=== PATIENT | female | born 1955 | race Caucasian/White ===

== ENCOUNTER 2016-08-14 09:38 | Emergency (ER) | payer BC ==
[2016-08-14 13:29] LABS: Hematocrit 42 % (35-47); Hemoglobin 14.2 g/dl (12.0-16.0); Mean Corpuscular HGB Conc 34 g/dl (31-36); Mean Corpuscular Hemoglobin 32 pg (27-31); Mean Corpuscular Volume 95 fL (80-97); Mean Platelet Volume 8 um3 (7.4-10.4); Red Blood Count 4.41 10^6/ul (4.0-5.4); Red Cell Distribution Width 13 % (10.5-15); White Blood Count 8.8 10^3/ul (3.5-10.8)
[2016-08-14 13:45] LABS: Albumin 3.9 g/dL (3.2-5.2); BUN/Creatinine Ratio 25.6 (8-20); C Reactive Protein 32.91 mg/L (< 5.00); Calcium 9.2 mg/dL (8.6-10.3); EGFR African American 97.2 (>60); EGFR Non-African American 75.6 (>60); Globulin 3.6 g/dL (2-4); Potassium 3.7 mmol/L (3.5-5.0); Total Bilirubin 0.3 mg/dL (0.2-1.0); Total Protein 7.5 g/dL (6.4-8.9); Urine Bacteria 1+ (Absent); Urine Bilirubin Negative (Negative); Urine Glucose Negative (Negative); Urine Nitrite Positive (Negative)
--- NOTE | 2016-08-14 13:55 | RAD ---
HISTORY: Right upper quadrant pain COMPARISONS: None TECHNIQUE: Multiple transverse and longitudinal ultrasound images were obtained of the right upper quadrant of the abdomen using grayscale and color Doppler imaging. FINDINGS: LIVER: The liver is normal in shape, size, contour, and echogenicity. There are no focal parenchymal masses. There is normal hepatopedal flow of the portal vein on Doppler imaging. BILIARY TREE: There is no intrahepatic or extrahepatic biliary dilatation. The common duct measures 0.3 cm. GALLBLADDER: The gallbladder is well-visualized. There is no cholelithiasis, gallbladder wall thickening, pericholecystic fluid, or sonographic Crespo sign. PANCREAS: The head of the pancreas is unremarkable. The tail of the pancreas is not well visualized secondary to overlying bowel gas. RIGHT KIDNEY: The right kidney is normal in shape, size, contour, and echogenicity. There is no hydronephrosis or nephrolithiasis. The right kidney measures 9.3 x 3.6 x 3.9 cm. AORTA AND IVC: The aorta and IVC are unremarkable. FLUID: There are no pleural effusions. There is no free fluid within the hepatorenal recess. OTHER FINDINGS: None. IMPRESSION: NO ACUTE SONOGRAPHIC PATHOLOGY OF THE VISUALIZED PORTION OF THE ABDOMEN
[2016-08-14] MEDS ORDERED: HYDROmorphone* 1 MG/ML 1 ML SYR IV ONE (14:04)
[2016-08-14] MEDS ORDERED: Ondansetron INJ* 2 MG/ML VIAL IV ONE (14:04)
--- NOTE | 2016-08-14 14:45 | RAD ---
INDICATION: 1 week lower abdominal pain radiating to the lower back. Pain persists for 2 hours then resolves. COMPARISON: None. TECHNIQUE: Multidetector CT images were obtained from the lung bases to the ischial tuberosities. Evaluation of the viscera is limited without IV contrast. Multiplanar reformation. REPORT: 3 mm nodule at the lateral basal segment of the LEFT lower lobe seen in association with a bronchovascular bundle reference image 16.. Additional 3 mm subpleural nodule at the lateral basal segment of the LEFT lower lobe reference image 11. Unremarkable unenhanced liver, gallbladder, pancreas, spleen. Negative for CT abnormality of the upper GI or small bowel. The appendix is not visualized. Negative for inflammatory change in the region of the cecum or remainder of the RIGHT lower quadrant. Unremarkable colon. Negative for perienteric inflammatory change, ascites, free air, or significant hernias. Normal adrenal glands. 2.4 cm diameter exophytic cortical cyst of the LEFT kidney. Unremarkable nondilated ureters and partially distended urinary bladder. Post hysterectomy. Unremarkable adnexal regions. Negative for lymphadenopathy. Normal diameter abdominal aorta and common iliac arteries with atherosclerotic calcification. Physiologic distention of the IVC. Bilateral chronic appearing L5 spondylolysis with grade 2 anterolisthesis. No suspicious focal osseous lesions evident. IMPRESSION: 1. While the appendix is not visualized limiting assessment there is no inflammatory change in the region of the cecum or remainder of the RIGHT lower quadrant to raise concern for appendicitis. 2. Negative for urolithiasis or obstructive uropathy. 3. No acute abdominal pelvic pathologic process evident. 4. Incidental LEFT basilar pulmonary nodules measuring 3 mm or smaller for which follow-up noncontrast CT in 12 months time is suggested if there are known risk factors for bronchogenic carcinoma. Ref: Aleta H, Serge FLOWERS, Jesus G, et al. Guidelines for Management of Small Pulmonary Nodules Detected on CT Scans: A Statement from the Fleischner Society. March 2005 Radiology, 237, [phone].
[2016-08-14] MEDS ORDERED: Ciprofloxacin TAB* 500 MG PO ONE (15:23)
[2016-08-14 15:42] VITALS: BP 110/56
--- NOTE | 2016-08-15 14:06 | ED ---
Kev Benson Adam, scribed for Rajeev Oakley MD on 08/14/16 at 1252 . Abdominal Pain/Female - HPI Summary HPI Summary: Pt is a 60 year old female presenting with lower abdominal pain. She states that the pain has been intermittent for the past 1.5 weeks. It feels like her abdomen is "on fire" and it radiates to both sides and to the back. She states that it hurts when she eats and it also hurts when she doesn't eat. She denies nausea and vomiting. Surgical hx of partial hysterectomy x2. - History of Current Complaint Chief Complaint: EDAbdPain Stated Complaint: ABD/BACK PAIN Time Seen by Provider: 08/14/16 12:29 Hx Obtained From: Patient Onset/Duration: Gradual Onset, Lasting Weeks, Still Present Timing: Intermittent Episode Lasting - Hours Severity Initially: Moderate Severity Currently: Moderate Pain Intensity: 3 Pain Scale Used: 0-10 Numeric Location: Diffuse, Discrete At: RLQ, Discrete At: LLQ, Suprapubic Radiates: Yes Radiates to: Back, Other - Both sides Character: Burning - "On fire" Aggravating Factor(s): Food Alleviating Factor(s): Nothing Associated Signs and Symptoms: Positive: Negative. Negative: Nausea, Vomiting Allergies/Adverse Reactions: Allergies Allergy/AdvReac Type Severity Reaction Status Date / Time No Known Allergies Allergy Verified 08/14/16 09:55 PMH/Surg Hx/FS Hx/Imm Hx Previously Healthy: Yes - Cancer History Cancer Type, Location and Year: Negative - Surgical History Surgery Procedure, Year, and Place: Negative Infectious Disease History: No Infectious Disease History: Denies: Traveled Outside the [place] in Last 30 Days - Family History Known Family History: Positive: Cardiac Disease, Diabetes, Other - Gallbladder disease, cancer - Social History Occupation: Employed Full-time Lives: With Family - Alcohol Use: None Hx Substance Use: No Substance Use Type: Reports: None Hx Tobacco Use: Yes Smoking Status (MU): Current Every Day Smoker Review of Systems Negative: Fever Positive: Abdominal Pain. Negative: Vomiting, Nausea All Other Systems Reviewed And Are Negative: Yes Physical Exam Triage Information Reviewed: Yes Vital Signs On Initial Exam: Initial Vitals Temp Pulse Resp BP Pulse Ox 97.3 F 78 16 131/71 99 08/14/16 09:45 08/14/16 09:45 08/14/16 09:45 08/14/16 09:45 08/14/16 09:45 Vital Signs Reviewed: Yes Appearance: Positive: Well-Appearing, No Pain Distress Skin: Positive: Warm, Skin Color Reflects Adequate Perfusion, Dry Head/Face: Positive: Normal Head/Face Inspection Eyes: Positive: Normal ENT: Positive: Normal ENT inspection Neck: Positive: Supple, Nontender Respiratory/Lung Sounds: Positive: Clear to Auscultation, Breath Sounds Present Cardiovascular: Positive: RRR Abdomen Description: Positive: Other: - Positive Crespo's sign. Tenderness in the RUQ, RLQ, and epigastrium. Bowel Sounds: Positive: Present Musculoskeletal: Positive: Normal Neurological: Positive: Normal Psychiatric: Positive: Affect/Mood Appropriate - [place] Coma Scale Coma Scale Total: 15 Diagnostics - Vital Signs Vital Signs Temp Pulse Resp BP Pulse Ox 08/14/16 12:24 72 16 125/71 99 08/14/16 10:36 98.1 F 77 16 132/52 100 08/14/16 09:45 97.3 F 78 16 131/71 99 - Laboratory Lab Results: Lab Results 08/14/16 08/14/16 08/14/16 Range/Units 13:15 13:15 13:15 WBC 8.8 (3.5-10.8) 10^3/ul RBC 4.41 (4.0-5.4) 10^6/ul Hgb 14.2 (12.0-16.0) g/dl Hct 42 (35-47) % MCV 95 (80-97) fL MCH 32 H (27-31) pg MCHC 34 (31-36) g/dl RDW 13 (10.5-15) % Plt Count 360 (150-450) 10^3/ul MPV 8 (7.4-10.4) um3 Neut % (Auto) 68.4 (38-83) % Lymph % (Auto) 24.3 L (25-47) % [place] % (Auto) 4.3 (1-9) % Eos % (Auto) 1.4 (0-6) % Baso % (Auto) 1.6 (0-2) % Absolute Neuts (auto) 6.0 (1.5-7.7) 10^3/ul Absolute Lymphs (auto) 2.1 (1.0-4.8) 10^3/ul Absolute Monos (auto) 0.4 (0-0.8) 10^3/ul Absolute Eos (auto) 0.1 (0-0.6) 10^3/ul Absolute Basos (auto) 0.1 (0-0.2) 10^3/ul Absolute Nucleated RBC 0 10^3/ul Nucleated RBC % 0 Sodium 136 (133-145) mmol/L Potassium 3.7 (3.5-5.0) mmol/L Chloride 102 (101-111) mmol/L Carbon Dioxide 26 (22-32) mmol/L Anion Gap 8 (2-11) mmol/L BUN 20 (6-24) mg/dL Creatinine 0.78 (0.51-0.95) mg/dL Est GFR ( Amer) 97.2 (>60) Est GFR (Non-Af Amer) 75.6 (>60) BUN/Creatinine Ratio 25.6 H (8-20) Glucose 89 (70-100) mg/dL Lactic Acid (0.5-2.0) mmol/L Calcium 9.2 (8.6-10.3) mg/dL Total Bilirubin 0.30 (0.2-1.0) mg/dL AST 12 L (13-39) U/L ALT 7 (7-52) U/L Alkaline Phosphatase 109 H (34-104) U/L C-Reactive Protein 32.91 H (< 5.00) mg/L Total Protein 7.5 (6.4-8.9) g/dL Albumin 3.9 (3.2-5.2) g/dL Globulin 3.6 (2-4) g/dL Albumin/Globulin Ratio 1.1 (1-3) Lipase 13 (11.0-82.0) U/L Urine Color [place]isha Urine Appearance Cloudy Urine pH 5.0 (5-9) Ur Specific [place] 1.024 (1.010-1.030) Urine Protein Negative (Negative) Urine Ketones Trace H (Negative) Urine Blood 2+ H (Negative) Urine Nitrate Positive H (Negative) Urine Bilirubin Negative (Negative) Urine Urobilinogen Negative (Negative) Ur Leukocyte Esterase Trace H (Negative) Urine WBC (Auto) Trace(0-5/hpf) (Absent) Urine RBC (Auto) Trace(0-2/hpf) (Absent) Ur Squamous Epith Cells Present H (Absent) Urine Bacteria 1+ H (Absent) Urine Glucose Negative (Negative) 08/14/16 Range/Units 13:15 WBC (3.5-10.8) 10^3/ul RBC (4.0-5.4) 10^6/ul Hgb (12.0-16.0) g/dl Hct (35-47) % MCV (80-97) fL MCH (27-31) pg MCHC (31-36) g/dl RDW (10.5-15) % Plt Count (150-450) 10^3/ul MPV (7.4-10.4) um3 Neut % (Auto) (38-83) % Lymph % (Auto) (25-47) % [place] % (Auto) (1-9) % Eos % (Auto) (0-6) % Baso % (Auto) (0-2) % Absolute Neuts (auto) (1.5-7.7) 10^3/ul Absolute Lymphs (auto) (1.0-4.8) 10^3/ul Absolute Monos (auto) (0-0.8) 10^3/ul Absolute Eos (auto) (0-0.6) 10^3/ul Absolute Basos (auto) (0-0.2) 10^3/ul Absolute Nucleated RBC 10^3/ul Nucleated RBC % Sodium (133-145) mmol/L Potassium (3.5-5.0) mmol/L Chloride (101-111) mmol/L Carbon Dioxide (22-32) mmol/L Anion Gap (2-11) mmol/L BUN (6-24) mg/dL Creatinine (0.51-0.95) mg/dL Est GFR ( Amer) (>60) Est GFR (Non-Af Amer) (>60) BUN/Creatinine Ratio (8-20) Glucose (70-100) mg/dL Lactic Acid 0.6 (0.5-2.0) mmol/L Calcium (8.6-10.3) mg/dL Total Bilirubin (0.2-1.0) mg/dL AST (13-39) U/L ALT (7-52) U/L Alkaline Phosphatase (34-104) U/L C-Reactive Protein (< 5.00) mg/L Total Protein (6.4-8.9) g/dL Albumin (3.2-5.2) g/dL Globulin (2-4) g/dL Albumin/Globulin Ratio (1-3) Lipase (11.0-82.0) U/L Urine Color Urine Appearance Urine pH (5-9) Ur Specific [place] (1.010-1.030) Urine Protein (Negative) Urine Ketones (Negative) Urine Blood (Negative) Urine Nitrate (Negative) Urine Bilirubin (Negative) Urine Urobilinogen (Negative) Ur Leukocyte Esterase (Negative) Urine WBC (Auto) (Absent) Urine RBC (Auto) (Absent) Ur Squamous Epith Cells (Absent) Urine Bacteria (Absent) Urine Glucose (Negative) Result Diagrams: 08/14/16 13:15 08/14/16 13:15 Lab Statement: Any lab studies that have been ordered have been reviewed, and results considered in the medical decision making process. - CT ABDOMEN/PELVIS CT Interpretation Completed By: Radiologist - IMPRESSION: 1. While the appendix is not visualized limiting assessment there is no inflammatory change in the region of the cecum or remainder of the RIGHT lower quadrant to raise concern for appendicitis. 2. Negative for urolithiasis or obstructive uropathy. 3. No acute abdominal pelvic pathologic process evident. 4. Incidental LEFT basilar pulmonary nodules measuring 3 mm or smaller for which follow-up noncontrast CT in 12 months time is suggested if there are known risk factors for bronchogenic carcinoma. Ref: Aleta H, Serge JH, Jesus G, et al. Guidelines for Management of Small Pulmonary Nodules Detected on CT Scans: A Statement from the Fleischner Society. March 2005 Radiology, 237, [phone]. - Additional Comments Diagnostic Additional Comments: GALLBLADDER ULTRASOUND - IMPRESSION: NO ACUTE SONOGRAPHIC PATHOLOGY OF THE VISUALIZED PORTION OF THE ABDOMEN Abdominal Pain Fem Course/Dx - Course Course Of Treatment: Ms. Jerez presented with diffuse pain and seemed more tender in the RUQ and right flank. U/S was negative for GB problems and her CT was unremarkable as were her labs aside from a UTI. She felt improved at D/C and I will treat the urine. - Diagnoses Provider Diagnoses: Pyelonephritis Discharge - Discharge Plan Condition: Stable Disposition: HOME Prescriptions: Ciprofloxacin TAB* [Cipro Tab*] 500 mg PO BID #14 tab Patient Education Materials: Acute Pyelonephritis (ED) Referrals: [facility] PHYSICIAN REFERRAL [Outside] Additional Instructions: Follow up with your Primary Care Physician. Use [facility] Physician Referral Center if needed. The documentation as recorded by the Kev barragan Adam accurately reflects the service I personally performed and the decisions made by me, Rajeev Oakley MD.
--- NOTE | 2016-08-16 07:30 | PN ---
Progress Note - Progress Note Note: Patient urine grew E coli >100,000. Patient placed on cipro will wait for final culture.
== END 2016-08-14 15:51 | disposition home or self-care (01) ==
LOC: ED 09:38
DX: N12 Tubulo-interstitial nephritis, not specified as acute or chronic (principal); R10.31 Right lower quadrant pain; R10.32 Left lower quadrant pain; F17.210 Nicotine dependence, cigarettes, uncomplicated
CPT/HCPCS: 36415; 74176; 76705; 80053; 81003; 81015; 83605; 83690; 85025; 86140; 87077; 87086; 87186; 96374; 96375; 99283; A9270-GY; J1170; J2405

== ENCOUNTER 2016-08-19 10:36 | Emergency (ER) | payer BC ==
[2016-08-19] MEDS ORDERED: NS 0.9% 1000 ML* 1,000 ML IV ONE (10:59)
[2016-08-19] MEDS ORDERED: Pantoprazole IV* 40 MG IV ONE (10:59)
[2016-08-19] MEDS ORDERED: Lidocaine 2% VISCOUS* 15 ML UDC PO ONE (11:01)
[2016-08-19] MEDS ORDERED: Al Hydrox/Mg Hydrox/Simet LIQ* 30 ML UDC PO ONE (11:01)
[2016-08-19 11:33] LABS: Hematocrit 40 % (35-47); Hemoglobin 13.6 g/dl (12.0-16.0); Mean Corpuscular HGB Conc 34 g/dl (31-36); Mean Corpuscular Hemoglobin 32 pg (27-31); Mean Corpuscular Volume 95 fL (80-97); Mean Platelet Volume 8 um3 (7.4-10.4); Red Blood Count 4.23 10^6/ul (4.0-5.4); Red Cell Distribution Width 13 % (10.5-15); White Blood Count 10.5 10^3/ul (3.5-10.8)
[2016-08-19 11:53] LABS: ALT 7 U/L (7-52); AST 12 U/L (13-39); Albumin 3.7 g/dL (3.2-5.2); Alkaline Phosphatase 99 U/L (34-104); Amylase 29 U/L (29-103); Anion Gap 7 mmol/L (2-11); BUN/Creatinine Ratio 29.1 (8-20); Blood Urea Nitrogen 25 mg/dL (6-24); C Reactive Protein 52.08 mg/L (< 5.00); CO2 Carbon Dioxide 24 mmol/L (22-32); Calcium 8.7 mg/dL (8.6-10.3); Chloride 103 mmol/L (101-111); EGFR African American 86.9 (>60); EGFR Non-African American 67.5 (>60); Globulin 3.2 g/dL (2-4); Glucose 87 mg/dL (70-100); Lipase < 10 U/L (11.0-82.0); Potassium 3.4 mmol/L (3.5-5.0); Sodium 134 mmol/L (133-145); Total Protein 6.9 g/dL (6.4-8.9)
[2016-08-19 11:54] LABS: Troponin I 0.01 ng/mL (<0.04)
[2016-08-19 13:30] LABS: Urine Bacteria Absent (Absent); Urine Bilirubin Negative (Negative); Urine Glucose Negative (Negative); Urine Nitrite Negative (Negative)
--- NOTE | 2016-08-19 14:22 | RAD ---
HISTORY: Abdominal pain COMPARISONS: CT dated August 14, 2016 VIEWS: Frontal views of the abdomen. FINDINGS: BOWEL: There is a nonspecific bowel gas pattern, with nondilated small bowel gas noted. There is a large amount of stool within the colon. CALCULI: There are no abnormal calculi. BONES AND SOFT TISSUES: There are no osseous abnormalities. OTHER FINDINGS: The lung bases are clear. There is no subphrenic gas. IMPRESSION: NONSPECIFIC BOWEL GAS PATTERN. LARGE AMOUNT OF STOOL WITHIN THE COLON.
[2016-08-19 14:45] VITALS: BP 121/67
--- NOTE | 2016-08-19 15:03 | ED ---
Jaime Benson Janilya, scribed for Americo Thomas MD on 08/19/16 at 1057 . Abdominal Pain/Female - HPI Summary HPI Summary: A 60 y/o female came in to [facility] presenting w/ a gradual onset of constant lower abd pain that radiates to back. Pt states she usually has high pain tolerance but she cannot handle this pain that she rates above 10/10 severity. She describes the pain as "burning, on-fire" pain. The pain begins after eating or after going to bed. Pt denies nausea, vomiting, diarrhea, burning or urgency urinating. Pt in addition reports mild constipation that has resolved now. Yesterday was last bowel movement. She was seen at [facility] this Sunday, 08/14 for the same Sx. She states that she had her blood work, ultrasound, CT w/o contrast done and prescribed morphine. She was able to sleep through Sunday night. However, the pain has returned on Sunday and Sunday, and has remained since. She has been taking aspirin every 3-4 hours, Advil, Aleve with no relief to her Sx. SHx 2 cups of coffee daily and tobacco use less than a pack a day. LNMP in 1983 when she had hysterectomy. Pt denies PSHx of colonoscopy. - History of Current Complaint Chief Complaint: EDFlankPain Stated Complaint: ABDOMIN PAIN Time Seen by Provider: 08/19/16 10:43 Hx Obtained From: Patient Onset/Duration: Gradual Onset, Lasting Days, Still Present Timing: Constant Severity Initially: Moderate Severity Currently: Moderate Pain Intensity: 9 Pain Scale Used: 0-10 Numeric Location: Diffuse - lower abd bilat Radiates: Yes Radiates to: Back Character: Burning Aggravating Factor(s): Nothing Alleviating Factor(s): Nothing Associated Signs and Symptoms: Positive: Back Pain, Constipation. Negative: Urinary Symptoms, Nausea, Vomiting, Diarrhea Allergies/Adverse Reactions: Allergies Allergy/AdvReac Type Severity Reaction Status Date / Time No Known Allergies Allergy Verified 08/14/16 09:55 PMH/Surg Hx/FS Hx/Imm Hx Previously Healthy: Yes - Cancer History Cancer Type, Location and Year: Negative - Surgical History Surgery Procedure, Year, and Place: Negative Infectious Disease History: Denies: Traveled Outside the [place] in Last 30 Days - Family History Known Family History: Positive: Cardiac Disease, Diabetes, Other - Gallbladder disease, cancer - Social History Alcohol Use: None Hx Substance Use: No Substance Use Type: Reports: None Hx Tobacco Use: Yes Smoking Status (MU): Current Every Day Smoker Review of Systems Positive: Abdominal Pain, Other - constipation that is now resolved. Negative: Vomiting, Diarrhea, Nausea Negative: burning, urgency All Other Systems Reviewed And Are Negative: Yes Physical Exam Vital Signs On Initial Exam: Initial Vitals Temp Pulse Resp BP Pulse Ox 97.3 F 85 16 112/54 100 08/19/16 10:40 08/19/16 10:40 08/19/16 10:40 08/19/16 10:40 08/19/16 10:40 Diagnostics - Vital Signs Vital Signs Temp Pulse Resp BP Pulse Ox 08/19/16 10:40 97.3 F 85 16 112/54 100 - Laboratory Lab Results: Lab Results 08/19/16 08/19/16 08/19/16 Range/Units 11:00 11:00 11:00 WBC 10.5 (3.5-10.8) 10^3/ul RBC 4.23 (4.0-5.4) 10^6/ul Hgb 13.6 (12.0-16.0) g/dl Hct 40 (35-47) % MCV 95 (80-97) fL MCH 32 H (27-31) pg MCHC 34 (31-36) g/dl RDW 13 (10.5-15) % Plt Count 356 (150-450) 10^3/ul MPV 8 (7.4-10.4) um3 Neut % (Auto) 73.5 (38-83) % Lymph % (Auto) 18.2 L (25-47) % [place] % (Auto) 5.2 (1-9) % Eos % (Auto) 2.1 (0-6) % Baso % (Auto) 1.0 (0-2) % Absolute Neuts (auto) 7.7 (1.5-7.7) 10^3/ul Absolute Lymphs (auto) 1.9 (1.0-4.8) 10^3/ul Absolute Monos (auto) 0.6 (0-0.8) 10^3/ul Absolute Eos (auto) 0.2 (0-0.6) 10^3/ul Absolute Basos (auto) 0.1 (0-0.2) 10^3/ul Absolute Nucleated RBC 0.01 10^3/ul Nucleated RBC % 0.1 Sodium 134 (133-145) mmol/L Potassium 3.4 L (3.5-5.0) mmol/L Chloride 103 (101-111) mmol/L Carbon Dioxide 24 (22-32) mmol/L Anion Gap 7 (2-11) mmol/L BUN 25 H (6-24) mg/dL Creatinine 0.86 (0.51-0.95) mg/dL Est GFR ( Amer) 86.9 (>60) Est GFR (Non-Af Amer) 67.5 (>60) BUN/Creatinine Ratio 29.1 H (8-20) Glucose 87 (70-100) mg/dL Calcium 8.7 (8.6-10.3) mg/dL Total Bilirubin 0.30 (0.2-1.0) mg/dL AST 12 L (13-39) U/L ALT 7 (7-52) U/L Alkaline Phosphatase 99 (34-104) U/L Troponin I 0.01 (<0.04) ng/mL C-Reactive Protein 52.08 H (< 5.00) mg/L B-Natriuretic Peptide 52 ( - 100) pg/mL Total Protein 6.9 (6.4-8.9) g/dL Albumin 3.7 (3.2-5.2) g/dL Globulin 3.2 (2-4) g/dL Albumin/Globulin Ratio 1.2 (1-3) Amylase 29 (29-103) U/L Lipase < 10 L (11.0-82.0) U/L Urine Color Urine Appearance Urine pH (5-9) Ur Specific [place] (1.010-1.030) Urine Protein (Negative) Urine Ketones (Negative) Urine Blood (Negative) Urine Nitrate (Negative) Urine Bilirubin (Negative) Urine Urobilinogen (Negative) Ur Leukocyte Esterase (Negative) Urine WBC (Auto) (Absent) Urine RBC (Auto) (Absent) Ur Squamous Epith Cells (Absent) Urine Bacteria (Absent) Urine Glucose (Negative) 08/19/16 Range/Units 13:15 WBC (3.5-10.8) 10^3/ul RBC (4.0-5.4) 10^6/ul Hgb (12.0-16.0) g/dl Hct (35-47) % MCV (80-97) fL MCH (27-31) pg MCHC (31-36) g/dl RDW (10.5-15) % Plt Count (150-450) 10^3/ul MPV (7.4-10.4) um3 Neut % (Auto) (38-83) % Lymph % (Auto) (25-47) % [place] % (Auto) (1-9) % Eos % (Auto) (0-6) % Baso % (Auto) (0-2) % Absolute Neuts (auto) (1.5-7.7) 10^3/ul Absolute Lymphs (auto) (1.0-4.8) 10^3/ul Absolute Monos (auto) (0-0.8) 10^3/ul Absolute Eos (auto) (0-0.6) 10^3/ul Absolute Basos (auto) (0-0.2) 10^3/ul Absolute Nucleated RBC 10^3/ul Nucleated RBC % Sodium (133-145) mmol/L Potassium (3.5-5.0) mmol/L Chloride (101-111) mmol/L Carbon Dioxide (22-32) mmol/L Anion Gap (2-11) mmol/L BUN (6-24) mg/dL Creatinine (0.51-0.95) mg/dL Est GFR ( Amer) (>60) Est GFR (Non-Af Amer) (>60) BUN/Creatinine Ratio (8-20) Glucose (70-100) mg/dL Calcium (8.6-10.3) mg/dL Total Bilirubin (0.2-1.0) mg/dL AST (13-39) U/L ALT (7-52) U/L Alkaline Phosphatase (34-104) U/L Troponin I (<0.04) ng/mL C-Reactive Protein (< 5.00) mg/L B-Natriuretic Peptide ( - 100) pg/mL Total Protein (6.4-8.9) g/dL Albumin (3.2-5.2) g/dL Globulin (2-4) g/dL Albumin/Globulin Ratio (1-3) Amylase (29-103) U/L Lipase (11.0-82.0) U/L Urine Color Yellow Urine Appearance Cloudy Urine pH 5.0 (5-9) Ur Specific [place] 1.011 (1.010-1.030) Urine Protein Negative (Negative) Urine Ketones Negative (Negative) Urine Blood 1+ H (Negative) Urine Nitrate Negative (Negative) Urine Bilirubin Negative (Negative) Urine Urobilinogen Negative (Negative) Ur Leukocyte Esterase 3+ H (Negative) Urine WBC (Auto) Trace(0-5/hpf) (Absent) Urine RBC (Auto) 1+(3-5/hpf) H (Absent) Ur Squamous Epith Cells Present H (Absent) Urine Bacteria Absent (Absent) Urine Glucose Negative (Negative) Result Diagrams: 08/19/16 11:00 08/19/16 11:00 Lab Statement: Any lab studies that have been ordered have been reviewed, and results considered in the medical decision making process. - Radiology abd xray Xray Interpretation: No Acute Changes - IMPRESSION: NONSPECIFIC BOWEL GAS PATTERN. LARGE AMOUNT OF STOOL WITHIN THE COLON. Radiology Interpretation Completed By: Radiologist - EKG 1351 Cardiac Rate: NL - 72 bpm EKG Rhythm: Sinus Rhythm ST Segment: Normal - no ST elevation Abdominal Pain Fem Course/Dx - Course Course Of Treatment: A 60 y/o female came in to [facility] presenting w/ a gradual onset of constant lower abd pain that radiates to back. Pt states she usually has high pain tolerance but she cannot handle this pain that she rates above 10/ 10 severity. She describes the pain as "burning, on-fire" pain. The pain begins after eating or after going to bed. Pt denies nausea, vomiting, diarrhea, burning or urgency urinating. Pt in addition reports mild constipation that has resolved now. Yesterday was last bowel movement. She was seen at [facility] this Sunday, 08/14 for the same Sx. She states that she had her blood work, ultrasound, CT w/o contrast done and prescribed morphine. She was able to sleep through Sunday night. However, the pain has returned on Sunday and Sunday, and has remained since. She has been taking aspirin every 3-4 hours, Advil, Aleve with no relief to her Sx. SHx 2 cups of coffee daily and tobacco use less than a pack a day. LNMP in 1983 when she had hysterectomy. Pt denies PSHx of colonoscopy. EKG shows normal sinus rhythm w/ 72 bpm. Abd xray shows slight constipation and no other acute findings. Blood work within normal limits, except for the following: C-reactive proteins 52.08 H. BUN 25 H. BUN/ creatinine ratio 29.1 H. AST 12 L. lipase <10 L. In the ED course, pt was given Protonix and GI cocktail. Sx were resolved. I believe her Sx are secondary to aspirin and NSAIDs intake. She has been taking aspirin full dose for more than 2.5 weeks and now she has burning-like pain in epigastric- periumbilical pain. She was recommended to stop taking aspirin and NSAIDs and I will prescribe Protonix for the next 10 days. I will not repeat abdominal and pelvic CT since symptoms have improved. Pt is AxOx3 and hemodynamically stable. Pt will be discharged home w/ epigastric pain and acute abd pain. - Diagnoses Differential Diagnosis: Positive: Constipation, Urinary Tract Infection Provider Diagnoses: Abdominal pain, Epigastric pain Discharge - Discharge Plan Condition: Stable Disposition: HOME Prescriptions: Pantoprazole TAB (NF) [Protonix TAB (NF)] 40 mg PO DAILY #10 tab Patient Education Materials: Acute Abdominal Pain (ED), Epigastric Pain (ED) Referrals: No Primary Care Phys,NOPCP [Primary Care Provider] - The documentation as recorded by the Jaime barragan Janilya accurately reflects the service I personally performed and the decisions made by , Americo Thomas MD.
== END 2016-08-19 15:06 | disposition home or self-care (01) ==
LOC: ED 10:36
DX: R10.30 Lower abdominal pain, unspecified (principal); R10.13 Epigastric pain; M54.9 Dorsalgia, unspecified; K59.00 Constipation, unspecified; F17.210 Nicotine dependence, cigarettes, uncomplicated
CPT/HCPCS: 36415; 74020; 80053; 81003; 81015; 82150; 83690; 83880; 84484; 85025; 86140; 87086; 87106; 93005; 96374; 99284; A9270-GY

== ENCOUNTER 2017-11-13 14:27 | Emergency (ER) | payer BC ==
[2017-11-13 14:57] VITALS: BP 106/61
--- NOTE | 2017-11-13 15:06 | UC ---
Throat Pain/Nasal Richie HPI - HPI Summary HPI Summary: Sunday sinus issues started. Feels like "nerve spasms." Hurts to touch and blow nose, open mouth and eat. Only on right side. - History of Current Complaint Chief Complaint: UCRespiratory Stated Complaint: SINUS ISSUE Time Seen by Provider: 11/13/17 15:05 Hx Obtained From: Patient Pain Intensity: 9 - Allergies/Home Medications Allergies/Adverse Reactions: Allergies Allergy/AdvReac Type Severity Reaction Status Date / Time No Known Allergies Allergy Verified 11/13/17 14:57 PMH/Surg Hx/FS Hx/Imm Hx - Surgical History Surgical History: None Surgery Procedure, Year, and Place: Negative - Family History Known Family History: Positive: Cardiac Disease, Diabetes, Other - Gallbladder disease, cancer - Social History Alcohol Use: None Substance Use Type: None Smoking Status (MU): Heavy Every Day Tobacco Smoker Physical Exam Vital Signs: Initial Vital Signs Temp 97.5 F 11/13/17 14:52 Pulse 72 11/13/17 14:52 Resp 16 11/13/17 14:52 BP 106/61 11/13/17 14:52 Pulse Ox 96 11/13/17 14:52 Discharge - Sign-Out/Discharge Documenting (check all that apply): Patient Departure - Discharge Plan Condition: Stable Disposition: HOME Referrals: Cielo Yañez MD [Primary Care Provider] - - Billing Disposition and Condition Condition: STABLE Disposition: Home
[2017-11-13] MEDS ORDERED: HYDROcodone/ACETAMIN 5-325 MG* 1 TAB PO ONE (15:12)
--- NOTE | 2017-11-13 15:17 | UC ---
UC General HPI - HPI Summary HPI Summary: This patient is a 62 year old F presenting to [facility] with a chief complaint of intermittent episodes of nerve spasms and pain on the right side of her face since 3 days ago. The patient reports that her symptoms began after she hit the right side of her head on a pipe at work. The patient denies LOC. The patient reports that the pain is worse during the day and alleviates a bit at night. The patient rates the pain 9/10 in severity. Symptoms aggravated by sneezing, coughing, touching her nose or opening her mouth. Symptoms alleviated by nothing. Patient denies nausea, vision changes, or neck pain. The patient has taken ibuprofen for pain but notes that it has not helped with the pain. - History of Current Complaint Chief Complaint: UCRespiratory Stated Complaint: SINUS ISSUE Time Seen by Provider: 11/13/17 15:05 Hx Obtained From: Patient Onset/Duration: Sudden Onset, Lasting Days - 3 days, Still Present Timing: Intermittent Episodes Lasting: Onset Severity: Moderate Current Severity: Moderate Pain Intensity: 9 Pain Location at: right side of face Aggravating: coughing, sneezing, touching nose, opening mouth Alleviating: nothing Associated Signs & Symptoms: Positive: Headache, Other - negative neck pain, negative vision changes. Negative: Nausea - Allergy/Home Medications Allergies/Adverse Reactions: Allergies Allergy/AdvReac Type Severity Reaction Status Date / Time No Known Allergies Allergy Verified 11/13/17 14:57 PMH/Surg Hx/FS Hx/Imm Hx Other GI/ History: colitis - Surgical History Surgical History: None Surgery Procedure, Year, and Place: Negative - Family History Known Family History: Positive: Cardiac Disease, Diabetes, Other - Gallbladder disease, cancer - Social History Alcohol Use: None Substance Use Type: None Smoking Status (MU): Heavy Every Day Tobacco Smoker Review of Systems Constitutional: Negative - negative fever Eyes: Negative - negative vision changes Musculoskeletal: Negative - negative neck pain, Myalgia - right-sided facial pain All Other Systems Reviewed And Are Negative: Yes Physical Exam - Summary Physical Exam Summary: General: well-appearing, no pain distress Skin: warm, color reflects adequate perfusion, dry Head: normal, tender to palpation right orbital maxillofacial region, no scleral ejection Eyes: EOMI, BERE ENT: normal Neck: supple, nontender Respiratory: CTA, breath sounds present Cardiovascular: RRR Abdomen: soft, nontender Bowel: present Musculoskeletal: normal, strength/ROM intact Neurological: sensory/motor intact, A&O x3 Psychological: affect/mood appropriate Triage Information Reviewed: Yes Vital Signs: Initial Vital Signs Temp 97.5 F 11/13/17 14:52 Pulse 72 11/13/17 14:52 Resp 16 11/13/17 14:52 BP 106/61 11/13/17 14:52 Pulse Ox 96 11/13/17 14:52 Vital Signs Reviewed: Yes Diagnostics - Radiology CT Brain Xray Interpretation: No Acute Changes - IMPRESSION: NO ACUTE INTRACRANIAL PATHOLOGY. Dr. Roman has reviewed this report. Radiology Interpretation Completed By: Radiologist CT Maxillofacial Xray Interpretation: Positive (See Comments) - IMPRESSION: 1. NO FACIAL FRACTURE. 2. MILD SINUS MUCOSAL INFLAMMATORY DISEASE, WITH AIR-FLUID LEVELS IN THE MAXILLARY SINUSES BILATERALLY. IN THE CORRECT CLINICAL SETTING, THIS MAY REPRESENT ACUTE SINUSITIS. Dr. Roman has reviewed this report. Radiology Interpretation Completed By: Radiologist Course/Dx - Course Course Of Treatment: DISCUSSED CT RESULTS WITH THE PATIENT AND HER . F/ U PMD IF NOT COMPLETELY IMPROVED; RECHECK SOONER IF WORSE. - Differential Dx - Multi-Symptom Provider Diagnoses: head injury. sinusitis Discharge - Sign-Out/Discharge Documenting (check all that apply): Patient Departure - Discharge Plan Condition: Stable Disposition: HOME Prescriptions: Amoxicillin/Clavulanate TAB* [Augmentin TAB 875*] 875 mg PO BID #20 tab HYDROcodone/ACETAMIN 5-325 MG* [[place] 5-325 TAB*] 1 tab PO Q4H PRN #30 tab MDD 6 PRN Reason: Pain Patient Education Materials: Sinusitis (ED), Concussion (ED), Head Injury (ED) Forms: *Work Release Referrals: Cielo Yañez MD [Primary Care Provider] - Additional Instructions: FOLLOW UP WITH YOUR DOCTOR. GET RECHECKED FOR ANY WORSENING OF YOUR CONDITION OR QUESTIONS OR CONCERNS. - Billing Disposition and Condition Condition: STABLE Disposition: Home
--- NOTE | 2017-11-13 15:38 | RAD ---
HISTORY: pain,struck rt forehead/orbit COMPARISONS: None TECHNIQUE: Multiple contiguous axial CT scans were obtained of the head without intravenous contrast. FINDINGS: HEMORRHAGE/INFARCT: There is no hemorrhage or acute infarct. MASSES/SHIFT: There is no mass or shift. EXTRA-AXIAL SPACES: There are no extra-axial fluid collections. SULCI AND VENTRICLES: The sulci and ventricles are normal in size and position for the patient's stated age. CEREBRUM: There are no focal parenchymal abnormalities. BRAINSTEM: There are no focal parenchymal abnormalities. CEREBELLUM: There are no focal parenchymal abnormalities. VESSELS: The vessels are grossly normal. PARANASAL SINUSES: The paranasal sinuses are clear. ORBITS: The orbits are unremarkable. BONES AND SOFT TISSUE: No bone or soft tissue abnormalities are noted. OTHER: None IMPRESSION: NO ACUTE INTRACRANIAL PATHOLOGY.
--- NOTE | 2017-11-13 15:41 | RAD ---
HISTORY: pain,struck rt forehead/orbit COMPARISONS: None TECHNIQUE: Multiple contiguous axial CT scans were obtained of the face without intravenous contrast, with coronal and sagittal multiplanar reformations. FINDINGS: BONES: There is no displaced fracture or dislocation. The orbital rim is intact. The zygomatic arch is intact. The pterygoid plates are intact. ORBITS: The globes are round. The optic nerves are symmetric. The extraocular musculature is normal. There is no post septal or intraconal inflammatory change. There is no retrobulbar hematoma. PARANASAL SINUSES: There are-fluid levels within the maxillary sinuses bilaterally. There is mucosal thickening of the ethmoid air cells. BRAIN AND SOFT TISSUE: Unremarkable. OTHER: None. IMPRESSION: 1. NO FACIAL FRACTURE. 2. MILD SINUS MUCOSAL INFLAMMATORY DISEASE, WITH AIR-FLUID LEVELS IN THE MAXILLARY SINUSES BILATERALLY. IN THE CORRECT CLINICAL SETTING, THIS MAY REPRESENT ACUTE SINUSITIS
== END 2017-11-13 16:15 | disposition home or self-care (01) ==
LOC: UCEAST 14:27
DX: S09.90XA Unspecified injury of head, initial encounter (principal); W22.09XA Striking against other stationary object, initial encounter; Y93.9 Activity, unspecified; Y92.9 Unspecified place or not applicable; Y99.0 Civilian activity done for income or pay; J32.9 Chronic sinusitis, unspecified; Z82.49 Family history of ischemic heart disease and other diseases of the circulatory system; Z83.3 Family history of diabetes mellitus; Z83.79 Family history of other diseases of the digestive system; Z80.9 Family history of malignant neoplasm, unspecified; F17.200 Nicotine dependence, unspecified, uncomplicated
CPT/HCPCS: 70450; 70486; 99212; G0463

== ENCOUNTER 2024-02-08 09:29 | Observation (INO) ==
[2024-02-08 10:08] LABS: ABS Lymphocytes 0.5 10^3/uL (1.0-4.8); ABS Monocytes 0.4 10^3/uL (0.0-0.9); ABS Neutrophils 4.7 10^3/uL (1.5-7.6); Eosinophil % 0.3 %; Hematocrit 39.4 % (35-45); Hemoglobin 13.5 g/dL (11.5-14.3); Lymphocyte % 8.5 %; Mean Corpuscular Hemoglobin 32.9 pg (27-33); Mean Corpuscular Hgb Conc 34.2 g/dL (31-36); Mean Corpuscular Volume 96.3 fL (80-97); Mean Platelet Volume 6.8 fL (7.5-11.2); Nucleated Red Blood Cells % 0.1 %/100WBC (0.0-0.8); Platelet Count 275 10^3/uL (150-450); Red Blood Count 4.09 10^6/uL (3.63-4.92); Red Cell Distribution Width 14.1 % (12-17); White Blood Count 5.7 10^3/uL (3.8-11.8)
[2024-02-08 10:13] LABS: INR 1.06 (0.85-1.14)
[2024-02-08 10:38] LABS: Albumin 4.1 g/dL (3.2-5.2); Albumin/Globulin Ratio 1.7 (1-3); Creatinine, Serum 0.59 mg/dL (0.51-0.95); Globulin 2.4 g/dL (2-4); Potassium 4.2 mmol/L (3.5-5.0); Total Bilirubin 0.4 mg/dL (0.2-1.0); Total Protein 6.5 g/dL (6.4-8.9); eGFR CKD-EPI 98.7 (>60)
[2024-02-08] MEDS: Albuterol/Ipratropium NEB.SOL (2.5/0.5 MG) 3 ML NEB.SOLN INH ONE (11:17)
[2024-02-08 11:47] LABS: High Sensitivity Troponin 1 Hr 4 pg/mL (<15)
[2024-02-08] MEDS: Acetaminophen IV 1 GM/100ML 1,000 MG/100 ML BAG IV ONE (13:04)
[2024-02-08 17:58] LABS: Urine Appearance Turbid; Urine Bilirubin Negative (Negative); Urine Blood 1+ (Negative); Urine Color Light-Yellow; Urine Glucose Negative (Negative); Urine Ketones Negative (Negative); Urine Nitrite 1+ (Negative); Urine Protein Negative (Negative); Urine Specific Gravity 1.011 (1.002-1.030); Urine Urobilinogen Negative (Negative); Urine pH 7.5 (5.0-8.0)
[2024-02-08 17:59] LABS: Urine Bacteria Absent /HPF (Absent); Urine Red Blood Cell Absent /HPF (0-Trace); Urine Squamous Epithelial Cell Present /HPF (Absent); Urine White Blood Cell Trace(0-5/hpf) /HPF (0-Trace)
[2024-02-08] MEDS ORDERED: Fluticasone NASAL SPRAY 50MCG 16 gm SPRAY BTL INTRANASAL PRN (18:52)
[2024-02-08 19:49] LABS: Calcium 8.8 mg/dL (8.6-10.3); Creatinine, Serum 0.65 mg/dL (0.51-0.95); Potassium 4.1 mmol/L (3.5-5.0); eGFR CKD-EPI 96.4 (>60)
[2024-02-08] MEDS: Albuterol/Ipratropium NEB.SOL (2.5/0.5 MG) 3 ML NEB.SOLN INH SCH ×2 (20:22→23:32)
[2024-02-08] MEDS: Enoxaparin 40 MG/0.4 ML SYR SUBCUT SCH (21:03)
[2024-02-08 21:30] LABS: Osmolality Serum 255 mOsm/kg (275-295)
[2024-02-08 21:30] LABS: Urine Osmo 396 mOsm/kg (150-1150)
[2024-02-09 06:28] LABS: Calcium 8.6 mg/dL (8.6-10.3); Creatinine, Serum 0.63 mg/dL (0.51-0.95); Magnesium 2.1 mg/dL (1.9-2.7); Potassium 4.1 mmol/L (3.5-5.0); eGFR CKD-EPI 97.2 (>60)
[2024-02-09] MEDS: Albuterol/Ipratropium NEB.SOL (2.5/0.5 MG) 3 ML NEB.SOLN INH PRN (10:00)
[2024-02-09] MEDS: FLUTICAS/UMECLI/VILANT 100-62.5-25 MDI (NF) INH SCH (12:28)
[2024-02-09] MEDS: Nicotine Lozenge mini 4 MG LOZNG.MINI MT PRN (14:43)
[2024-02-09 18:21] LABS: Creatinine, Serum 0.76 mg/dL (0.51-0.95); Potassium 4.3 mmol/L (3.5-5.0); eGFR CKD-EPI 85.8 (>60)
[2024-02-10] MEDS: NS 0.9% IVPB ONE (01:28)
[2024-02-10] MEDS: FOSPHENYTOIN IVPB ONE (01:28)
[2024-02-10 06:16] LABS: ABS Basophils 0.1 10^3/uL (0.0-0.1); ABS Eosinophils 0.1 10^3/uL (0.0-0.5); ABS Monocytes 0.6 10^3/uL (0.0-0.9); ABS Neutrophils 4.3 10^3/uL (1.5-7.6); Eosinophil % 1.4 %; Hemoglobin 13.7 g/dL (11.5-14.3); Lymphocyte % 16.3 %; Mean Corpuscular Hemoglobin 33.8 pg (27-33); Mean Corpuscular Hgb Conc 35.1 g/dL (31-36); Mean Corpuscular Volume 96.2 fL (80-97); Mean Platelet Volume 7.1 fL (7.5-11.2); Platelet Count 276 10^3/uL (150-450); Red Blood Count 4.06 10^6/uL (3.63-4.92); Red Cell Distribution Width 14.2 % (12-17); White Blood Count 6.1 10^3/uL (3.8-11.8)
[2024-02-10 06:35] LABS: Calcium 8.9 mg/dL (8.6-10.3); Creatinine, Serum 0.64 mg/dL (0.51-0.95); Magnesium 2.3 mg/dL (1.9-2.7); Potassium 4.3 mmol/L (3.5-5.0); eGFR CKD-EPI 96.8 (>60)
[2024-02-10] MEDS: guaiFENesin 100 mg/5 ml LIQ unit dose cup PO PRN (17:35)
[2024-02-11 06:31] LABS: ABS Basophils 0.1 10^3/uL (0.0-0.1); ABS Eosinophils 0.1 10^3/uL (0.0-0.5); ABS Lymphocytes 1.3 10^3/uL (1.0-4.8); ABS Monocytes 0.7 10^3/uL (0.0-0.9); ABS Neutrophils 4.1 10^3/uL (1.5-7.6); ABS Nucleated RBC 0.01 10^3/ul; Eosinophil % 1.8 %; Hematocrit 36.4 % (35-45); Hemoglobin 12.7 g/dL (11.5-14.3); Lymphocyte % 20.8 %; Mean Corpuscular Hemoglobin 33.6 pg (27-33); Mean Corpuscular Hgb Conc 34.8 g/dL (31-36); Mean Corpuscular Volume 96.6 fL (80-97); Mean Platelet Volume 7.1 fL (7.5-11.2); Nucleated Red Blood Cells % 0.1 %/100WBC (0.0-0.8); Platelet Count 257 10^3/uL (150-450); Red Blood Count 3.77 10^6/uL (3.63-4.92); White Blood Count 6.3 10^3/uL (3.8-11.8)
[2024-02-11 06:46] LABS: Calcium 8.7 mg/dL (8.6-10.3); Creatinine, Serum 0.69 mg/dL (0.51-0.95); Magnesium 2.2 mg/dL (1.9-2.7); Potassium 4.7 mmol/L (3.5-5.0); eGFR CKD-EPI 95.1 (>60)
[2024-02-11] MEDS: Sulfur Hexaflouride MICROSPHR 25 MG VIAL IV PRN (10:56)
[2024-02-11 14:01] VITALS: BP 144/80
== END 2024-02-11 15:45 | disposition home or self-care (01) ==
LOC: ED 09:29 → EDHOLD 09:29 → MEDTELE 22:33
PROVIDERS: ADMIT Hospitalist; ATTEND Hospitalist